=== PATIENT | male | born 1985 | race Caucasian/White ===

== ENCOUNTER 2021-04-01 16:10 | Emergency (ER) | payer OTHER ==
[~2021-04-01] VITALS: Ht 165.1 cm; Wt 70.3 kg
[2021-04-01 16:29] VITALS: BP 132/81
--- NOTE | 2021-04-01 17:30 | NUR ---
Patient eloped from facility. ER MD notified.
== END 2021-04-01 18:08 | disposition left against medical advice (07) ==
LOC: ER 16:33
DX: R53.1 Weakness (principal); R42 Dizziness and giddiness
CPT/HCPCS: 82962-TC